=== PATIENT | male | born 1935 | race Caucasian/White ===

== ENCOUNTER 2020-12-09 07:47 | Emergency (ER) | payer MEDICARE, OTHER ==
[~2020-12-09] VITALS: Ht 180.3 cm; Wt 104.5 kg
[2020-12-09 07:54] VITALS: Ht 180.3 cm; Wt 104.5 kg
[2020-12-09] MEDS ORDERED: MULTI-DAY VITAM1 TAB PO (07:56)
[2020-12-09] MEDS ORDERED: VITAMIN D31250 MCG PO (07:56)
[2020-12-09] MEDS ORDERED: ZESTRIL10 MG PO (07:57)
[2020-12-09] MEDS ORDERED: TOPROL XL50 MG PO (07:57)
[2020-12-09] MEDS ORDERED: OMEPRAZOLE40 MG PO (07:58)
[2020-12-09] MEDS ORDERED: PROBIOTIC1 EAC1 PO (07:58)
[2020-12-09] MEDS ORDERED: PREVAGEN PO (07:58)
[2020-12-09] MEDS ORDERED: XARELTO10 MG PO (07:58)
[2020-12-09] MEDS ORDERED: COLACE100 MG PO (07:58)
[2020-12-09] MEDS ORDERED: MIRAPEX0.5 MG PO (07:59)
[2020-12-09] MEDS ORDERED: FLUTICASONE PRO16 GM NASAL (07:59)
[2020-12-09 08:35] LABS: BASOPHILS 1.2 % (0-2); EOSINOPHILS 0.6 % (0-7); HEMATOCRIT 50.8 % (42.0-54.0); HEMOGLOBIN 16.8 g/dL (13.5-17.5); LYMPHOCYTES 29.3 % (15-50); MCH 28.9 pg (26.0-34.0); MCV 87.8 fL (80.0-100.0); MEAN PLATELET VOLUME 8.9 fL (7.4-10.4); MONOCYTES 8.8 % (2-11); NEUTROPHILS 60.1 % (40-80); PLATELET COUNT 161 10x3/uL (130-400); RBC 5.79 10x6/uL (4.20-6.10); RDW 14.9 % (11.5-14.5); WBC 8.4 10x3/uL (4.8-10.8)
[2020-12-09 08:40] LABS: CALC OSMOLALITY 281 mosm/kg (275-300); CALCIUM 9.2 mg/dL (8.5-10.1); CARBON DIOXIDE 31.2 mmol/L (21.0-32.0); CHLORIDE - SERUM 106 mmol/L (98-107); GLUCOSE 102 mg/dL (74-106); SODIUM 141 mmol/L (136-145); UREA NITROGEN 16 mg/dL (7-18); eGFR NON AFRICAN AMERICAN 76 mL/min (90-120)
[2020-12-09 08:57] LABS: ALBUMIN 3.7 g/dL (3.4-5.0); ALKALINE PHOSPHATASE 85 U/L (30-120); ALT (SGPT) 27 U/L (10-68); BILIRUBIN - TOTAL 0.77 mg/dL (0.2-1.3); CKMB 1.1 U/L (0.0-3.6); CREATINE KINASE 33 UL (21-232); MAGNESIUM - SERUM 2.2 mg/dL (1.8-2.4); TROPONIN-I < 0.017 ng/mL (0.000-0.060)
[2020-12-09] MEDS ORDERED: LISINOPRIL20 MG PO (09:46)
[2020-12-09] MEDS ORDERED: PRINIVIL20 MG PO (09:57)
[2020-12-09 10:15] VITALS: BP 151/89
== END 2020-12-09 10:27 | disposition home or self-care (01) ==
LOC: D.ER 07:47
PROVIDERS: Family Medicine
DX: I10 Essential (primary) hypertension (principal); R51.9 Headache, unspecified; I25.10 Atherosclerotic heart disease of native coronary artery without angina pectoris